=== PATIENT | female | born 1985 | race American Indian/Alaskan Native ===

== ENCOUNTER 2020-08-25 07:58 | Emergency (ER) | payer SELFPAY ==
[2020-08-25 08:14] VITALS: BP 131/83
--- NOTE | 2020-08-25 08:29 | Emergency Department Report ---
ED General Adult HPI - General Chief complaint: Pain General Stated complaint: PAINFUL LUMP IN BREAST PUI?: No Time Seen by Provider: 08/25/20 08:29 Source: patient Mode of arrival: Ambulatory Limitations: No Limitations - History of Present Illness Initial comments: This is a 35-year-old female with no prior medical history who presents to ED complaining of redness and pain to her right breast x1 day. Patient states she works at the [employer] and while she was at work yesterday she bumped into large box with her chest. Patient states today she noticed a lump and tenderness to her right inner breast. Patient states she did not notice it the day before. Patient states that pain is localized to the right medial aspect of the breast. She denies any nipple discharge. - Related Data Previous Rx's Medication Instructions Recorded Last Taken Type Clindamycin [Clindamycin CAP] 300 mg PO Q8H #21 cap 08/25/20 Unknown Rx Ibuprofen [Motrin] 800 mg PO Q8HR #40 tablet 08/25/20 Unknown Rx Allergies Allergy/AdvReac Type Severity Reaction Status Date / Time No Known Allergies Allergy Unverified 08/25/20 08:10 ED Review of Systems ROS: Stated complaint: PAINFUL LUMP IN BREAST Other details as noted in HPI Comment: All other systems reviewed and negative ED Past Medical Hx - Past Medical History Previous Medical History?: No - Medications Home Medications: Home Medications Medication Instructions Recorded Confirmed Last Taken Type Clindamycin [Clindamycin CAP] 300 mg PO Q8H #21 cap 08/25/20 Unknown Rx Ibuprofen [Motrin] 800 mg PO Q8HR #40 tablet 08/25/20 Unknown Rx ED Physical Exam - General Limitations: No Limitations General appearance: alert - Head Head exam: Present: atraumatic - Eye Eye exam: Present: normal appearance - Neck Neck exam: Present: normal inspection - Respiratory Respiratory exam: Present: normal lung sounds bilaterally - Cardiovascular Cardiovascular Exam: Present: regular rate - Back Exam Back exam: Present: normal inspection - Skin Skin exam: Present: warm, intact - Other Other exam information: BREAST: Symetrical, Supple bilaterally, tender mass at 3:00. About 2 to 3 cm mass. No nipple drainage bilaterally. Nonfluctuant. ED Course Vital Signs 08/25/20 08:11 Temperature 98.3 F Pulse Rate 100 H Respiratory 17 Rate Blood Pressure 131/83 [Right] O2 Sat by Pulse 100 Oximetry ED Medical Decision Making - Medical Decision Making 35-year-old female presents to the ED with painful right breast. Discussed with patient antibiotic trial therapy with Motrin. Discussed follow-up with breast surgeon within a week. Vital signs are normal and she is in no acute distress she understands instructions and will follow-up. - Differential Diagnosis Contusion versus breast cellulitis Critical care attestation.: If time is entered above; I have spent that time in minutes in the direct care of this critically ill patient, excluding procedure time. ED Disposition Clinical Impression: Pain of right breast Contusion Qualifiers: Encounter type: initial encounter Contusion area: breast Laterality: right Qualified Code(s): S20.01XA - Contusion of right breast, initial encounter Disposition: TO HOME OR SELFCARE Is pt being admited?: No Does the pt Need Aspirin: No Condition: Stable Instructions: Breast Tenderness Additional Instructions: Make sure to follow up with the primary care physician as discussed. Take all your medications as you've been prescribed. If you have any worsening symptoms or develop new symptoms please return to ED immediately. Prescriptions: Clindamycin [Clindamycin CAP] 300 mg PO Q8H #21 cap Ibuprofen [Motrin] 800 mg PO Q8HR #40 tablet Referrals: LOPEZ ELDRIDGE RN [Registered Nurse] - 3-5 Days DREA ZIMMERMAN MD [Staff Physician] - 3-5 Days Forms: Work/School Release Form(ED) Time of Disposition: 08:51
== END 2020-08-25 09:20 | disposition home or self-care (01) ==
LOC: ED 07:58
DX: S20.01XA Contusion of right breast, initial encounter (principal); N64.4 Mastodynia; Z79.899 Other long term (current) drug therapy; X58.XXXA Exposure to other specified factors, initial encounter; Y93.89 Activity, other specified; Y92.89 Other specified places as the place of occurrence of the external cause; Y99.0 Civilian activity done for income or pay
CPT/HCPCS: 99281

== ENCOUNTER 2020-12-11 18:42 | Emergency (ER) | payer SELFPAY ==
[2020-12-11 20:32] VITALS: BP 128/83
--- NOTE | 2020-12-11 21:28 | Emergency Department Report ---
ED General Adult HPI - General Chief complaint: Fever Stated complaint: FEVER BODY ACHES Time Seen by Provider: 12/11/20 21:24 Source: patient Mode of arrival: Ambulatory Limitations: No Limitations - History of Present Illness Initial comments: The patient was evaluated in the emergency department for symptoms described in the history of present illness. He/she was evaluated in the context of the global COVID-19 pandemic, which necessitated consideration that the patient might be at risk for infection with the virus that causes COVID-19. Instituti onal protocols and algorithms that pertain to the evaluation of patients at risk for COVID-19 are in a state of rapid change based on information released by regulatory bodies including the CDC and federal and state organizations. These policies and algorithms were followed during the patient's care in the emergency department. Please note that these policies, procedures and recommendations changed on a rapid basis. 35-year-old -Russian female presents to the emergency room for 1 day history of subjective fever and body aches. Patient is unvaccinated. She denies any nausea no vomiting no chills. She states that she does not have a thermometer at home. She has not been Covid tested. She denies any shortness of breath no chest pain no nausea no vomiting no diarrhea. Patient states that she last took Tylenol about 3 PM. She denies any past medical history currently takes no meds on a daily basis. 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 Onset/Timin -: days(s) Location: head Severity scale (0 -10): 4 Quality: aching Consistency: constant Improves with: none Worsens with: none Associated Symptoms: fever/chills (Subjective fever no chills), headaches. denies: cough, diaphoresis, loss of appetite, malaise, nausea/vomiting, rash, shortness of breath, syncope, weakness Treatments Prior to Arrival: none - Related Data Previous Rx's Medication Instructions Recorded Last Taken Type Clindamycin [Clindamycin CAP] 300 mg PO Q8H #21 cap 08/25/20 Unknown Rx Ibuprofen [Motrin 800 MG tab] 800 mg PO Q8HR #40 tablet 12/11/20 Unknown Rx Allergies Allergy/AdvReac Type Severity Reaction Status Date / Time No Known Allergies Allergy Unverified 08/25/20 08:10 ED Review of Systems ROS: Stated complaint: FEVER BODY ACHES Other details as noted in HPI Comment: All other systems reviewed and negative ED Past Medical Hx - Past Medical History Previous Medical History?: No - Surgical History Past Surgical History?: Yes Additional Surgical History: both tubes removed for ectopic - Social History Smoking Status: Never Smoker Substance Use Type: None - Medications Home Medications: Home Medications Medication Instructions Recorded Confirmed Last Taken Type Clindamycin [Clindamycin CAP] 300 mg PO Q8H #21 cap 08/25/20 Unknown Rx Ibuprofen [Motrin 800 MG tab] 800 mg PO Q8HR #40 tablet 12/11/20 Unknown Rx ED Physical Exam - General Limitations: No Limitations General appearance: alert, in no apparent distress - Head Head exam: Present: atraumatic, normocephalic - Eye Eye exam: Present: normal appearance - ENT ENT exam: Present: mucous membranes moist - Neck Neck exam: Present: normal inspection, full ROM - Respiratory Respiratory exam: Present: normal lung sounds bilaterally. Absent: respiratory distress, chest wall tenderness, accessory muscle use - Cardiovascular Cardiovascular Exam: Present: tachycardia - GI/Abdominal GI/Abdominal exam: Present: soft, normal bowel sounds - Extremities Exam Extremities exam: Present: normal inspection, full ROM - Back Exam Back exam: Present: normal inspection - Neurological Exam Neurological exam: Present: alert, oriented X3, normal gait - Psychiatric Psychiatric exam: Present: normal affect, normal mood - Skin Skin exam: Present: warm, dry, intact, normal color. Absent: rash ED Course Vital Signs 12/11/20 20:29 Temperature 99.8 F H Pulse Rate 109 H Respiratory 14 Rate Blood Pressure 128/83 O2 Sat by Pulse 100 Oximetry ED Medical Decision Making - Medical Decision Making 35-year-old -Russian female presents to the emergency room for 1 day history of subjective fever and body aches. Patient is unvaccinated. She d enies any nausea no vomiting no chills. She states that she does not have a thermometer at home. She has not been Covid tested. She denies any shortness of breath no chest pain no nausea no vomiting no diarrhea. Patient states that she last took Tylenol about 3 PM. She denies any past medical history currently takes no meds on a daily basis. 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 Critical care attestation.: If time is entered above; I have spent that time in minutes in the direct care of this critically ill patient, excluding procedure time. ED Disposition Clinical Impression: Suspected 2019 novel coronavirus infection Disposition: HOME / SELF CARE / HOMELESS Is pt being admited?: No Does the pt Need Aspirin: No Condition: Stable Instructions: Prevent the Spread of COVID-19 if You Are Sick - CDC, COVID-19: How to Protect Yourself and Others - CDC, COVID-19 Frequently Asked Questions Additional Instructions: Your symptoms appear most consistent with a nonspecific viral syndrome. However, given this current pandemic, COVID-19 is in the differential of possibilities. I do recommend outpatient Covid 19 testing. In the meantime, isolate/quarantine yourself and stay away from anyone who is elderly, immunocompromised or chronically ill. You can use ibuprofen every 6-8 hours and Tylenol every 4-8 hours, using the dosing on the back of the bottle, as needed for any fever or body aches. Return to the emergency department with any worsening of your symptoms, development of chest pain or shortness of breath, or with any acute distress. You can get Covid test through [employer] Prescriptions: Ibuprofen [Motrin 800 MG tab] 800 mg PO Q8HR #40 tablet Referrals: [facility] [Provider Group] - 3-5 Days Forms: Work/School Release Form(ED) Time of Disposition: 21:31
== END 2020-12-11 23:33 | disposition home or self-care (01) ==
LOC: ED 18:42
DX: R05 Cough (principal); Z20.822 Contact with and (suspected) exposure to COVID-19; Z98.890 Other specified postprocedural states
CPT/HCPCS: 99282